=== PATIENT | female | born 1955 | race Caucasian/White ===

== ENCOUNTER → 2020-02-06 | Outpatient (CLI) | payer MEDICARE ==
--- NOTE | 2020-02-07 08:38 | MR ---
EXAMINATION TYPE: MR cervical spine wo con DATE OF EXAM: 02/06/2020 COMPARISON: None HISTORY: neck pain and headaches for a couple of years/ no prev listed CONTRAST: Performed utilizing 0 mL intravenous Gadavist gadolinium contrast. TECHNIQUE: Multiplanar multiecho imaging on a 3.0 Leonor magnet is performed through the cervical spin e. FINDINGS: The craniovertebral junction is normal. Vertebral body alignment is normal. C7-T1: No focal disc herniation or significant disc bulge is evident. No spinal canal stenosis or n eural foraminal stenosis is present. C6-7: Minimal disc bulging may be present centrally with mild anterior thecal sac compression. No AP spinal canal stenosis present. Neural foramen are patent. No cord contact is evident.. C5-6: Mild broad-based disc bulge is present with anterior thecal sac compression. No cord contact or spinal canal stenosis is present. Neural foramen are patent. C4-5: Broad-based central to left paracentral disc bulge is present with anterior thecal sac compress ion. No cord contact or spinal canal stenosis is present. Uncovertebral joint hypertrophy is mild monica ateral foraminal stenosis, greater on the right.. C3-4: No focal disc herniation or significant disc bulge is evident. No spinal canal stenosis or ruthie ral foraminal stenosis is present. C2-3: No focal disc herniation or significant disc bulge is evident. No spinal canal stenosis or ruthie ral foraminal stenosis is present. IMPRESSIONS: 1. Mild disc bulging C4-5 through C6-7 discussed above. No stenosis or cord contact is evident. 2. Foraminal narrowing due to uncovertebral joint hypertrophy C4-5.
== END | disposition home or self-care (01) ==
LOC: RADMRIMAIN 14:04
PROVIDERS: ATTEND Family Medicine
DX: M48.02 Spinal stenosis, cervical region (principal); M50.221 Other cervical disc displacement at C4-C5 level
CPT/HCPCS: 72141

== ENCOUNTER → 2021-10-12 | Outpatient (CLI) | payer MEDICARE ==
--- NOTE | 2021-10-13 12:05 | MR ---
EXAMINATION TYPE: MR cspine/lspine wo con DATE OF EXAM: 10/12/2021 COMPARISON: Prior cervical MRI 02/06/2020 HISTORY: Neck and lower back pain. TECHNIQUE: Multiplanar, multisequence imaging of the cervical and lumbar spine is performed without I V contrast. FINDINGS: Cervical spine MRI: There is no significant spinal stenosis. Endplate discogenic marrow signal change s are present at C6-7 with associated loss of disc height signal, spondylosis is similar to prior exa m, there is loss of disc height signal at C4-5, C5-6 similar to prior. Cervical cord signal is mainta ined. There may be a slight spinal curvature. C4-5 shows uncovertebral joint hypertrophy and facet arthropathy resulting in foraminal encroachment bilaterally similar to prior exam, no significant disc herniation, there is some posterior extension endplate disc complex causing only minimal anterior mass effect on the thecal sac. C5-6 shows some mild foraminal encroachment right greater than left. C6-7 shows posterior extension endplate disc complex causing mild anterior mass effect on the thecal sac. No other significant finding, exam is essentially stable. Partially empty sella noted incidentally. IMPRESSION: Stable degenerative disc disease, foraminal encroachment. Lumbar spine MRI: there is no significant spinal stenosis. Lumbar vertebral bodies show preserved hei ght and alignment. There is spondylosis at multiple levels with some associated loss of disc height a nd signal greatest at L2-3, endplate discogenic marrow signal changes are present at multiple levels. The conus is at T12-L1 shows an unremarkable appearance. There is a retroaortic left renal vein note d. Dilation of the common bile duct is noted incidentally. L5-S1 shows facet arthropathy change. No evident disc herniation. L4-5: Facet arthropathy with some minimal posterior lateral mass effect on the thecal sac is noted. C ircumferential extension endplate disc complex encroaches minimally on the inferior aspect of the for gerardo. L3-4: Hypertrophic changes of the facets causes some posterior lateral mass effect on the thecal sac. No evident disc herniation. L2-3: Posterior extension endplate disc complex causes minimal anterior mass effect on the thecal sac . Facet arthropathy with hypertrophy ligamentum flavum causes some posterior lateral mass effect on t he thecal sac. Lateral extension endplate disc complex causes some mild right-sided foraminal encroac hment. L1-2: No evident disc herniation. No significant foraminal encroachment. IMPRESSION: Mild degenerative disc disease, facet arthropathy as described. Dilated common bile duct and it additional findings above.
== END | disposition home or self-care (01) ==
LOC: RADMRIMAIN 09:00
PROVIDERS: ATTEND Family Medicine
DX: M50.323 Other cervical disc degeneration at C6-C7 level (principal); M51.26 Other intervertebral disc displacement, lumbar region; M47.816 Spondylosis without myelopathy or radiculopathy, lumbar region; M99.71 Connective tissue and disc stenosis of intervertebral foramina of cervical region
CPT/HCPCS: 72141; 72148